=== PATIENT | male | born 1980 | race Caucasian/White ===

== ENCOUNTER 2021-02-14 04:43 | Emergency (ER) | payer OTHER ==
[~2021-02-14] VITALS: Ht 167.6 cm; Wt 108.9 kg
--- NOTE | 2021-02-14 05:00 | NUR ---
PRESENTED TO THE ER FOR C/O RLE PAIN, REDNESS AND SWELLING. PT WAS PLACED IN BED 9 ER, ON MONITOR . VSS.
[2021-02-14] MEDS ORDERED: LIDOCAINE /MPF 1% VIAL 5 ML VIAL ONE (05:44)
[2021-02-14] MEDS ORDERED: CEFTRIAXONE 1 G VIAL ONE (05:45)
[2021-02-14] MEDS ORDERED: SULFAMETH/TRIMETH 800/160 MG 1 UDTAB TABLET ONE (05:45)
[2021-02-14] MEDS ORDERED: SULFAMETH/TRIMETH 800/160 MG 1 UDTAB TABLET PO ONE (06:00)
[2021-02-14] MEDS ORDERED: CEFTRIAXONE 1 G VIAL IM ONE (06:00)
--- NOTE | 2021-02-14 06:10 | NUR ---
US AT BEDSIDE.
[2021-02-14] MEDS ORDERED: CEPH500C2 PO (06:50)
[2021-02-14] MEDS ORDERED: SULF-11 PO (06:50)
--- NOTE | 2021-02-14 07:02 | NUR ---
Patient discharged to home in stable condition. Written and verbal after care instructions given. Patient verbalizes understanding of instruction.
[2021-02-14 07:03] VITALS: BP 127/83
== END 2021-02-14 07:03 | disposition home or self-care (01) ==
LOC: ER 04:43
DX: L03.115 Cellulitis of right lower limb (principal)
CPT/HCPCS: 93971; 96372; 99284; J0696; J3490